=== PATIENT | female | born 1990 | race Caucasian/White ===

== ENCOUNTER → 2019-07-05 | Outpatient (CLI) | payer OTHER ==
[~2019-07-05] MED LIST: AMOXICILLIN500 M2 PO; FLONASE ALLERG9.9 ML NAS
== END | disposition home or self-care (01) ==
LOC: LAB 14:15
DX: J11.1 Influenza due to unidentified influenza virus with other respiratory manifestations (principal)

== ENCOUNTER 2019-07-07 13:46 | Emergency (ER) | payer OTHER ==
[~2019-07-07] VITALS: Ht 154.9 cm; Wt 62.1 kg
[2019-07-07] MEDS ORDERED: AMOXICILLIN500 M2 PO (14:32)
[2019-07-07] MEDS ORDERED: FLONASE ALLERG9.9 ML NAS (14:32)
== END 2019-07-07 14:33 | disposition home or self-care (01) ==
LOC: ED 13:46
DX: J02.9 Acute pharyngitis, unspecified (principal)

== ENCOUNTER → 2019-07-13 | Outpatient (CLI) | payer OTHER | END | disposition home or self-care (01) | LOC: RAD 16:03 | DX: J20.8 Acute bronchitis due to other specified organisms (principal) ==